=== PATIENT | male | born 1985 | race Caucasian/White ===

== ENCOUNTER 2017-10-30 08:59 | Emergency (ER) | payer OTHER ==
[~2017-10-30] VITALS: Ht 195.6 cm; Wt 99.8 kg
[2017-10-30] MEDS ORDERED: IBUP600 PO (09:32)
== END 2017-10-30 09:41 | disposition home or self-care (01) ==
LOC: ER 08:59
DX: K40.90 Unilateral inguinal hernia, without obstruction or gangrene, not specified as recurrent (principal)
CPT/HCPCS: 99282

== ENCOUNTER 2017-11-25 06:48 | Day surgery (SDC) | payer OTHER ==
[~2017-11-25] VITALS: Ht 195.6 cm; Wt 98.0 kg
[~2017-11-25 06:48] MED LIST: IBUP600 PO
== END 2017-11-25 23:10 | disposition home or self-care (01) ==
LOC: ORSCMMR 06:48
PROVIDERS: Surgery
PROC: 0YU60JZ Supplement Left Inguinal Region with Synthetic Substitute, Open Approach (ICD-10-PCS; principal; 2017-11-25 08:15)
DX: K40.90 Unilateral inguinal hernia, without obstruction or gangrene, not specified as recurrent (principal)
CPT/HCPCS: C1781; J0690; J2250; J3010; J7120

== ENCOUNTER 2019-03-23 13:59 | Emergency (ER) | payer OTHER ==
[~2019-03-23] VITALS: Ht 195.6 cm; Wt 102.1 kg
[2019-03-23] MEDS ORDERED: Cyclobenzaprine5 MG PO (14:45)
[2019-03-23] MEDS ORDERED: KETO10 PO (14:45)
== END 2019-03-23 14:54 | disposition home or self-care (01) ==
LOC: ER 13:59
DX: M54.42 Lumbago with sciatica, left side (principal); Z79.899 Other long term (current) drug therapy
CPT/HCPCS: 99283; A9270-GY

== ENCOUNTER 2022-04-26 08:23 | Emergency (ER) | payer OTHER ==
[~2022-04-26] VITALS: Ht 195.6 cm; Wt 95.7 kg
[~2022-04-26 08:23] MED LIST changes: +CYCL10 PO; +Cyclobenzaprine5 MG PO; +KETO10 PO; +Norco 10-325 T1 EACH PO; +Prednisone20 MG PO
[2022-04-26] MEDS ORDERED: SULTRIDS PO (09:15)
[2022-04-26] MEDS ORDERED: CEFD300 PO (09:15)
== END 2022-04-26 09:25 | disposition home or self-care (01) ==
LOC: ER 08:23
DX: L03.115 Cellulitis of right lower limb (principal)
CPT/HCPCS: 99283